=== PATIENT | female | born 1940 | race African-American/Black ===

== ENCOUNTER 2023-04-13 20:24 | Inpatient (IN) | payer OTHER ==
[2023-04-13] MEDS ORDERED: LOSARTAN 50MG/HCTZ 12.5MG 1 TAB PO ONE (22:17)
[2023-04-13] MEDS ORDERED: ACETAMINOPHEN 1000 MG/100 ML BAG IVPB ONE (22:18)
[2023-04-13] MEDS ORDERED: ACETAMINOPHEN INJECTION 100 ML IVPB ONE (22:19)
[2023-04-13] MEDS ORDERED: LOSARTAN POTASSIUM 50 MG TABLET ONE (22:19)
[2023-04-13 22:52] LABS: BASO % 1.8 % (0-2.0); EOS % 0.2 % (0-4.5); HEMATOCRIT 37.1 % (32.4-45.2); HEMOGLOBIN 12.5 GM/dL (10.7-15.3); LYMPH % 29.7 % (8-40); MCH 29.9 pg (25.7-33.7); MCHC 33.7 g/dl (32.0-36.0); MEAN CELL VOLUME 88.8 fl (80-96); MEAN PLT VOLUME 10.3 fl (7.5-11.1); MONO % 5.7 % (3.8-10.2); NEUT % 62.6 % (42.8-82.8); PLATELET COUNT 325 10^3/uL (134-434); RBC 4.18 M/mm3 (3.60-5.2); WHITE BLOOD COUNT 6.2 K/mm3 (4.0-10.0)
[2023-04-13 23:17] LABS: URINE APPEARANCE CLEAR; URINE BILIRUBIN NEGATIVE (NEGATIVE); URINE COLOR YELLOW; URINE GLUCOSE (UA) 3+ (NEGATIVE); URINE KETONE 1+ (NEGATIVE); URINE LEUK ESTERASE NEGATIVE (NEGATIVE); URINE NITRITE NEGATIVE (NEGATIVE); URINE PROTEIN TRACE (NEGATIVE)
[2023-04-13 23:21] LABS: ALBUMIN 3.7 g/dl (3.4-5.0); BLOOD UREA NITROGEN 18.1 mg/dL (7-18); CALCIUM 10.1 mg/dL (8.5-10.1)
[2023-04-13 23:24] LABS: CREATININE 1.1 mg/dL (0.55-1.3)
[2023-04-13 23:26] LABS: BILIRUBIN,TOTAL 0.6 mg/dL (0.2-1); TOT PROT 7.4 g/dl (6.4-8.2)
[2023-04-13] MEDS ORDERED: INSULIN (NOVOLOG MIX 70/30) 100 UNITS/ML MDV SQ SCH (23:41)
[2023-04-13] MEDS ORDERED: INSULIN (NOVOLOG) ASPART 100 UNITS/ML 10ML VIAL SQ ONE (23:43)
[2023-04-14] MEDS ORDERED: INSULIN (NOVOLOG MIX 70/30) 100 UNITS/ML MDV SQ SCH ×2 (07:00→23:37)
[2023-04-14] MEDS ORDERED: ACETAMINOPHEN 1000 MG/100 ML BAG IVPB PRN (07:14)
[2023-04-14] MEDS ORDERED: hydrALAZINE HCL 20 MG/ML VIAL IVPUSH PRN ×2 (07:16→07:17)
[2023-04-14] MEDS ORDERED: hydrALAZINE HCL 20 MG/ML VIAL IVPUSH ONE (07:30)
[2023-04-14] MEDS ORDERED: LIDOCAINE HCL 2% JELLY 6 ML TP ONE (07:30)
[2023-04-14] MEDS ORDERED: HEPARIN NA (PORCINE) 5,000 UNITS/ML 1ML VIAL ONE (07:43)
[2023-04-14] MEDS: HEPARIN NA (PORCINE) 5,000 UNITS/ML 1ML VIAL SQ SCH ×3 (08:03→21:27)
[2023-04-14] MEDS: INSULIN (LEVEMIR) 100 UNITS/ML UNITS SQ SCH (08:03)
[2023-04-14] MEDS: INSULIN SLIDING SCALE (NOVOLOG) 1 VIAL SQ SCH ×4 (08:04→21:27)
[2023-04-14] MEDS: SODIUM CHLORIDE 1,000 ML IV SCH (08:04)
[2023-04-14] MEDS ORDERED: hydrALAZINE HCL 20 MG/ML VIAL ONE (08:08)
[2023-04-14 09:42] LABS: BASO % 0.6 % (0-2.0); EOS % 0.4 % (0-4.5); HEMATOCRIT 38.9 % (32.4-45.2); HEMOGLOBIN 12.6 GM/dL (10.7-15.3); LYMPH % 31.3 % (8-40); MCH 29.3 pg (25.7-33.7); MCHC 32.2 g/dl (32.0-36.0); MEAN CELL VOLUME 90.8 fl (80-96); MEAN PLT VOLUME 9.3 fl (7.5-11.1); MONO % 7.5 % (3.8-10.2); NEUT % 60.2 % (42.8-82.8); PLATELET COUNT 259 10^3/uL (134-434); RBC 4.28 M/mm3 (3.60-5.2); RDW 13.8 % (11.6-15.6); WHITE BLOOD COUNT 5.6 K/mm3 (4.0-10.0)
[2023-04-14 09:49] LABS: INR 1.01 (0.83-1.09); PROTHROMBIN TIME (PATIENT) 11.7 SEC (9.7-13.0)
[2023-04-14] MEDS ORDERED: PANTOPRAZOLE SODIUM 40 MG VIAL IVPUSH SCH (10:00)
[2023-04-14 10:03] LABS: POTASSIUM 4.1 mmol/L (3.5-5.1)
[2023-04-14 10:06] LABS: CALCIUM 9.6 mg/dL (8.5-10.1)
[2023-04-14 10:07] LABS: ALBUMIN 3.4 g/dl (3.4-5.0); BLOOD UREA NITROGEN 17.3 mg/dL (7-18)
[2023-04-14 10:10] LABS: CREATININE 1.2 mg/dL (0.55-1.3); MAGNESIUM 1.6 mg/dL (1.8-2.4); PHOSPHOROUS 3.7 mg/dL (2.5-4.9)
[2023-04-14 10:11] LABS: BILIRUBIN,TOTAL 0.6 mg/dL (0.2-1); TOT PROT 6.9 g/dl (6.4-8.2)
[2023-04-14] MEDS ORDERED: MAGNESIUM SULF 50% (8.12 MEQ/2 ML-1 GM VIAL) IVPB ONE (17:58)
[2023-04-15] MEDS: PANTOPRAZOLE SODIUM 40 MG VIAL IVPUSH SCH ×3 (05:38→21:56)
[2023-04-15] MEDS: HEPARIN NA (PORCINE) 5,000 UNITS/ML 1ML VIAL SQ SCH (06:18)
[2023-04-15] MEDS: INSULIN SLIDING SCALE (NOVOLOG) 1 VIAL SQ SCH ×4 (06:19→21:55)
[2023-04-15] MEDS: INSULIN (LEVEMIR) 100 UNITS/ML UNITS SQ SCH (06:19)
[2023-04-15] MEDS: SODIUM CHLORIDE 1,000 ML IV SCH ×2 (08:15→21:24)
[2023-04-15 08:39] LABS: EOS % 1.4 % (0-4.5); HEMATOCRIT 36.6 % (32.4-45.2); HEMOGLOBIN 12.1 GM/dL (10.7-15.3); LYMPH % 39.5 % (8-40); MCH 29.9 pg (25.7-33.7); MCHC 33.1 g/dl (32.0-36.0); MEAN CELL VOLUME 90.4 fl (80-96); MEAN PLT VOLUME 9.5 fl (7.5-11.1); MONO % 7.8 % (3.8-10.2); NEUT % 50.3 % (42.8-82.8); PLATELET COUNT 257 10^3/uL (134-434); RBC 4.05 M/mm3 (3.60-5.2); RDW 14.2 % (11.6-15.6); WHITE BLOOD COUNT 5.4 K/mm3 (4.0-10.0)
[2023-04-15 09:03] LABS: POTASSIUM 4.6 mmol/L (3.5-5.1)
[2023-04-15 09:12] LABS: ALBUMIN 3.3 g/dl (3.4-5.0); CALCIUM 8.8 mg/dL (8.5-10.1); MAGNESIUM 2.2 mg/dL (1.8-2.4)
[2023-04-15 09:16] LABS: BLOOD UREA NITROGEN 16.5 mg/dL (7-18)
[2023-04-15 09:17] LABS: BILIRUBIN,TOTAL 0.7 mg/dL (0.2-1)
[2023-04-15 09:20] LABS: TOT PROT 6.5 g/dl (6.4-8.2)
[2023-04-15 09:22] LABS: CREATININE 1.2 mg/dL (0.55-1.3)
[2023-04-15] MEDS ORDERED: METOPROLOL TARTRATE 5 MG/5 ML VIAL IVPUSH PRN (10:14)
[2023-04-15] MEDS ORDERED: ACETAMINOPHEN 1000 MG/100 ML BAG IVPB ONE (10:30)
[2023-04-15 15:48] VITALS: RESP 20
[2023-04-16] MEDS: INSULIN SLIDING SCALE (NOVOLOG) 1 VIAL SQ SCH ×3 (06:23→16:29)
[2023-04-16] MEDS: INSULIN (LEVEMIR) 100 UNITS/ML UNITS SQ SCH (06:24)
[2023-04-16] MEDS ORDERED: INSULIN (NOVOLOG) ASPART 100 UNITS/ML 10ML VIAL ONE ×2 (07:56→10:53)
[2023-04-16 08:12] LABS: BASO % 0.7 % (0-2.0); EOS % 2.3 % (0-4.5); HEMOGLOBIN 10.6 GM/dL (10.7-15.3); LYMPH % 30.9 % (8-40); MCH 30.5 pg (25.7-33.7); MEAN CELL VOLUME 92.4 fl (80-96); MEAN PLT VOLUME 10.1 fl (7.5-11.1); NEUT % 54.1 % (42.8-82.8); PLATELET COUNT 229 10^3/uL (134-434); RBC 3.46 M/mm3 (3.60-5.2); RDW 13.8 % (11.6-15.6); WHITE BLOOD COUNT 6.2 K/mm3 (4.0-10.0)
[2023-04-16 08:33] LABS: POTASSIUM 4.5 mmol/L (3.5-5.1)
[2023-04-16 08:35] LABS: ALBUMIN 2.9 g/dl (3.4-5.0); BLOOD UREA NITROGEN 10.6 mg/dL (7-18); CALCIUM 8.1 mg/dL (8.5-10.1); MAGNESIUM 1.8 mg/dL (1.8-2.4)
[2023-04-16 08:38] LABS: PHOSPHOROUS 3.1 mg/dL (2.5-4.9)
[2023-04-16 08:39] LABS: CREATININE 1.1 mg/dL (0.55-1.3)
[2023-04-16 08:40] LABS: BILIRUBIN,TOTAL 0.6 mg/dL (0.2-1); TOT PROT 5.8 g/dl (6.4-8.2)
[2023-04-16] MEDS: PANTOPRAZOLE SODIUM 40 MG VIAL IVPUSH SCH (09:19)
[2023-04-16 11:17] VITALS: BMI 26.2
[2023-04-16 17:27] VITALS: BP 159/86; PULSE 84; TEMP 98.6
== END 2023-04-16 18:08 | disposition home or self-care (01) | DRG 389 ==
LOC: JER 20:24 → JERBED 04-14 03:05 → J4W 04-14 18:31
PROVIDERS: ADMIT Internal Medicine; ATTEND Internal Medicine
DX: K56.609 Unspecified intestinal obstruction, unspecified as to partial versus complete obstruction (principal); K92.0 Hematemesis; I10 Essential (primary) hypertension; E11.65 Type 2 diabetes mellitus with hyperglycemia; E11.9 Type 2 diabetes mellitus without complications
CPT/HCPCS: 36415; 71045-TC-FY; 74018-TC-FY; 74177-TC; 80053; 81003; 82962; 83605; 83690; 83735; 84100; 84484; 85025; 85610; 87077; 87086; 93005; 93010; 99285-25; J1644

== ENCOUNTER 2024-08-26 23:07 | Inpatient (IN) | payer OTHER ==
[2024-08-26] MEDS ORDERED: HALOPERIDOL LACTATE 5 MG/ML ONE (23:18)
[2024-08-26] MEDS ORDERED: LORazepam 2 MG/ML SDV VIAL ONE (23:28)
[2024-08-26] MEDS: HALOPERIDOL LACTATE 5 MG/ML IM ONE (23:38)
[2024-08-27 00:35] LABS: VENOUS BASE EXCESS -0.3 mmol/L (-2-2); VENOUS O2 SATURATION 86.9 % (70-80); VENOUS PCO2 43.4 mmHg (38-52); VENOUS PH 7.378 (7.310-7.410)
[2024-08-27 00:39] LABS: BASO % 0.3 % (0-2.0); EOS % 0.1 % (0-4.5); HEMATOCRIT 38.5 % (32.4-45.2); HEMOGLOBIN 12.6 GM/dL (10.7-15.3); LYMPH % 11.6 % (8-40); MCH 29.8 pg (25.7-33.7); MCHC 32.6 g/dl (32.0-36.0); MEAN CELL VOLUME 91.6 fl (80-96); MEAN PLT VOLUME 10.3 fl (7.5-11.1); MONO % 5.9 % (3.8-10.2); NEUT % 82.1 % (42.8-82.8); PLATELET COUNT 212 10^3/uL (134-434); RBC 4.21 M/mm3 (3.60-5.2); RDW 14.2 % (11.6-15.6); WHITE BLOOD COUNT 9.6 K/mm3 (4.0-10.0)
[2024-08-27] MEDS: SODIUM CHLORIDE 0.9% 500 ML INFUS.BAG IV ONE ×2 (00:40→01:35)
[2024-08-27 00:41] LABS: PH,URINE 5.5 (5.0-8.0); URINE APPEARANCE CLEAR; URINE BILIRUBIN NEGATIVE (NEGATIVE); URINE COLOR YELLOW; URINE GLUCOSE (UA) 3+ (NEGATIVE); URINE KETONE TRACE (NEGATIVE); URINE LEUK ESTERASE 1+ (NEGATIVE); URINE NITRITE NEGATIVE (NEGATIVE); URINE PROTEIN 1+ (NEGATIVE); URINE UROBILINOGEN 0.2 mg/dL (0.2-1.0)
[2024-08-27 00:46] LABS: URINE BARBITURATES NEGATIVE (NEGATIVE); URINE BENZODIAZEPINES NEGATIVE (NEGATIVE)
[2024-08-27 00:47] LABS: METHADONE, UR NEGATIVE (NEGATIVE); OPIATES, URI NEGATIVE (NEGATIVE); PHENCYCLIDINE,URINE NEGATIVE (NEGATIVE)
[2024-08-27 00:55] LABS: CHLORIDE 98 mmol/L (98-107); POTASSIUM 3.8 mmol/L (3.5-5.1); SODIUM 135 mmol/L (136-145)
[2024-08-27 00:57] LABS: ALBUMIN 3.9 g/dl (3.4-5.0); ANION GAP 12 mmol/L (4-13); BLOOD UREA NITROGEN 31.3 mg/dL (7-18); CALCIUM 9.7 mg/dL (8.5-10.1); CO2 25 mmol/L (21-32); MAGNESIUM 1.9 mg/dL (1.8-2.4)
[2024-08-27 01:00] LABS: SGOT/AST 37 U/L (15-37); SGPT/ALT 32 U/L (13-61)
[2024-08-27 01:01] LABS: CREATININE 1.8 mg/dL (0.55-1.3)
[2024-08-27 01:02] LABS: BILIRUBIN,TOTAL 0.4 mg/dL (0.2-1); TOT PROT 7.3 g/dl (6.4-8.2)
[2024-08-27 01:03] LABS: ALK PHOS 242 U/L (45-117)
[2024-08-27 01:12] LABS: COCAINE, UR NEGATIVE (NEGATIVE); GLUCOSE,RANDOM 601 mg/dL (74-106); URINE AMPHETAMINES NEGATIVE (NEGATIVE)
[2024-08-27] MEDS ORDERED: CEFTRIAXONE 1 G/50 ML PREMIX 50 ML IVPB ONE (01:27)
[2024-08-27] MEDS ORDERED: MAGNESIUM SULF 50% (8.12 MEQ/2 ML-1 GM VIAL) ONE (01:29)
[2024-08-27] MEDS: INSULIN REGULAR HUMAN 100 UNITS/ML *VIAL IVPUSH ONE (01:35)
[2024-08-27] MEDS: CEFTRIAXONE 1 GM in DEXTROSE 5%-WATER - 100 ML IVPB ONE (01:35)
[2024-08-27] MEDS: MAGNESIUM SULF 50% (8.12 MEQ/2 ML-1 GM VIAL) IVPB ONE (01:58)
[2024-08-27] MEDS ORDERED: ACETAMINOPHEN 325 MG TABLET (FP) PO PRN ×2 (02:46→17:02)
[2024-08-27 03:12] LABS: POTASSIUM 3.9 mmol/L (3.5-5.1)
[2024-08-27 03:13] LABS: BLOOD UREA NITROGEN 24.6 mg/dL (7-18); CALCIUM 9.1 mg/dL (8.5-10.1)
[2024-08-27 03:15] LABS: EPI CELLS 7.6 /uL (0-25.1); HYALINE CASTS 0.82 /uL (0-3.1); URINE BACTERIA 740.7 /uL (0-1359); URINE RBC 60.9 /uL (0-23.9); URINE WBC 180.5 /uL (0-25.8)
[2024-08-27 03:17] LABS: CREATININE 1.5 mg/dL (0.55-1.3)
[2024-08-27 03:56] LABS: LACTIC ACID 3.9 mmol/L (0.4-2.0)
[2024-08-27] MEDS: INSULIN REGULAR HUMAN 100 UNITS/ML *VIAL IVPUSH PRN (04:57)
[2024-08-27] MEDS: SODIUM CHLORIDE 1,000 ML with POTASSIUM CHLORIDE 40 MEQ IV SCH (04:58)
[2024-08-27] MEDS: hydrALAZINE HCL 20 MG/ML VIAL IVPUSH PRN (04:59)
[2024-08-27] MEDS: DEXMEDETOMIDINE PREMIX 400 MCG/100 ML BAG IVPB SCH (05:31)
[2024-08-27] MEDS: INSULIN ASPART SLIDING SCALE (NOVOLOG) 1 VIAL SQ SCH ×2 (06:51→18:50)
[2024-08-27 08:20] LABS: HEMATOCRIT 39.2 % (32.4-45.2); HEMOGLOBIN 12.4 GM/dL (10.7-15.3); MCH 29.7 pg (25.7-33.7); MCHC 31.7 g/dl (32.0-36.0); MEAN CELL VOLUME 93.6 fl (80-96); MEAN PLT VOLUME 10.5 fl (7.5-11.1); PLATELET COUNT 205 10^3/uL (134-434); RBC 4.19 M/mm3 (3.60-5.2); RDW 13.9 % (11.6-15.6); WHITE BLOOD COUNT 12.1 K/mm3 (4.0-10.0)
[2024-08-27 08:23] LABS: POTASSIUM 3.7 mmol/L (3.5-5.1)
[2024-08-27 08:27] LABS: CALCIUM 9.3 mg/dL (8.5-10.1)
[2024-08-27] MEDS: INSULIN (LEVEMIR) 100 UNITS/ML UNITS SQ SCH (08:27)
[2024-08-27 08:28] LABS: BLOOD UREA NITROGEN 24.7 mg/dL (7-18)
[2024-08-27 08:31] LABS: CREATININE 1.5 mg/dL (0.55-1.3); PHOSPHOROUS 2.2 mg/dL (2.5-4.9)
[2024-08-27 08:58] LABS: LACTIC ACID 5.1 mmol/L (0.4-2.0)
[2024-08-27] MEDS: SODIUM CHLORIDE 1,000 ML IV STA ×2 (09:38→14:21)
[2024-08-27] MEDS: HEPARIN NA (PORCINE) 5,000 UNITS/ML 1ML VIAL SQ SCH ×2 (09:38→21:54)
[2024-08-27] MEDS: amLODIPine BESYLATE 10 MG TABLET (FP) PO SCH (09:38)
[2024-08-27] MEDS: SERTRALINE HCL 25 MG TABLET (FP) PO SCH (09:38)
[2024-08-27] MEDS: PANTOPRAZOLE 40 MG TABLET PO SCH (09:38)
[2024-08-27 11:43] LABS: LACTIC ACID 2.7 mmol/L (0.4-2.0)
[2024-08-27] MEDS: LOSARTAN 50MG/HCTZ 12.5MG 1 TAB PO SCH (12:14)
[2024-08-27] MEDS: NAPH,MB-DB/K PH,MBDB POWDER PACKET PO SCH (14:21)
[2024-08-27] MEDS ORDERED: DEXTROSE 50%-WATER - 25 GM/50 ML VIAL IVPUSH PRN (14:41)
[2024-08-27] MEDS ORDERED: hydrALAZINE HCL 20 MG/ML VIAL IVPUSH PRN (17:02)
[2024-08-27] MEDS: LABETALOL HCL 100 MG TABLET (FP) PO ONE (17:12)
[2024-08-27] MEDS: POTASSIUM PHOSPHATE 30 MM in SODIUM CHLORIDE 500 ML IVPB ONE (18:08)
[2024-08-27] MEDS: MUPIROCIN 2% TOPICAL OINTMENT FOR DECOLONIZATION NS SCH (18:23)
[2024-08-27] MEDS: hydrOXYzine PAMOATE 25 MG CAPSULE (FP) PO ONE (20:39)
[2024-08-27] MEDS: MELATONIN 5 MG TABLETS PO ONE (20:40)
[2024-08-27] MEDS: CEFTRIAXONE 1 G/50 ML PREMIX 50 ML IVPB SCH (21:54)
[2024-08-27] MEDS: ROSUVASTATIN CA 10 MG TABLET PO SCH (21:54)
[2024-08-27] MEDS ORDERED: ROSUVASTATIN CA 10 MG TABLET PO SCH (22:00)
[2024-08-27] MEDS ORDERED: CEFTRIAXONE 1 G/50 ML PREMIX 50 ML IVPB SCH (22:00)
[2024-08-27] MEDS ORDERED: MUPIROCIN 2% TOPICAL OINTMENT FOR DECOLONIZATION NS SCH (22:00)
[2024-08-27] MEDS ORDERED: CHLORHEXIDINE GLUCONATE 4% CLEANSER FOR DECOLONIZATION TP SCH ×2 (22:00)
[2024-08-27] MEDS: POTASSIUM CHLORIDE 40 MEQ in SODIUM CHLORIDE 1,000 ML IV SCH (22:32)
[2024-08-28] MEDS: LABETALOL HCL 100 MG TABLET (FP) PO ONE (00:42)
[2024-08-28] MEDS: SODIUM CHLORIDE 1,000 ML with POTASSIUM CHLORIDE 40 MEQ IV SCH (07:37)
[2024-08-28 08:01] LABS: HEMATOCRIT 35.9 % (32.4-45.2); HEMOGLOBIN 11.3 GM/dL (10.7-15.3); MCH 29.4 pg (25.7-33.7); MCHC 31.6 g/dl (32.0-36.0); MEAN CELL VOLUME 93.1 fl (80-96); MEAN PLT VOLUME 9.6 fl (7.5-11.1); PLATELET COUNT 194 10^3/uL (134-434); RBC 3.85 M/mm3 (3.60-5.2); RDW 14.2 % (11.6-15.6); WHITE BLOOD COUNT 7.7 K/mm3 (4.0-10.0)
[2024-08-28 08:17] LABS: POTASSIUM 4.4 mmol/L (3.5-5.1)
[2024-08-28 08:20] LABS: BLOOD UREA NITROGEN 14.6 mg/dL (7-18)
[2024-08-28 08:24] LABS: CREATININE 1.3 mg/dL (0.55-1.3); MAGNESIUM 1.8 mg/dL (1.8-2.4); PHOSPHOROUS 3.9 mg/dL (2.5-4.9)
[2024-08-28] MEDS: SERTRALINE HCL 25 MG TABLET (FP) PO SCH (09:46)
[2024-08-28] MEDS: LOSARTAN 50MG/HCTZ 12.5MG 1 TAB PO SCH (09:46)
[2024-08-28] MEDS: amLODIPine BESYLATE 10 MG TABLET (FP) PO SCH (09:46)
[2024-08-28 14:55] LABS: EPI CELLS 6 /uL (0-25.1); HYALINE CASTS 1 /uL (0-3.1); PH,URINE 5.5 (5.0-8.0); URINE APPEARANCE CLEAR; URINE BACTERIA 11 /uL (0-1359); URINE BILIRUBIN NEGATIVE (NEGATIVE); URINE COLOR YELLOW; URINE GLUCOSE (UA) 3+ (NEGATIVE); URINE KETONE TRACE (NEGATIVE); URINE LEUK ESTERASE NEGATIVE (NEGATIVE); URINE NITRITE NEGATIVE (NEGATIVE); URINE PROTEIN 1+ (NEGATIVE); URINE RBC 127 /uL (0-23.9); URINE UROBILINOGEN 0.2 mg/dL (0.2-1.0); URINE WBC 21 /uL (0-25.8)
[2024-08-28] MEDS: INSULIN ASPART SLIDING SCALE (NOVOLOG) 1 VIAL SQ SCH (16:22)
[2024-08-28] MEDS: INSULIN (LEVEMIR) 100 UNITS/ML UNITS SQ SCH (21:54)
[2024-08-29 08:11] LABS: BASO % 0.9 % (0-2.0); EOS % 1.8 % (0-4.5); HEMATOCRIT 36.3 % (32.4-45.2); HEMOGLOBIN 11.9 GM/dL (10.7-15.3); LYMPH % 40.6 % (8-40); MCHC 32.8 g/dl (32.0-36.0); MEAN CELL VOLUME 91.5 fl (80-96); MONO % 9.6 % (3.8-10.2); NEUT % 47.1 % (42.8-82.8); PLATELET COUNT 201 10^3/uL (134-434); RBC 3.97 M/mm3 (3.60-5.2); RDW 14.2 % (11.6-15.6); WHITE BLOOD COUNT 5.5 K/mm3 (4.0-10.0)
[2024-08-29 08:15] LABS: CALCIUM 8.9 mg/dL (8.5-10.1)
[2024-08-29 08:16] LABS: BLOOD UREA NITROGEN 18.2 mg/dL (7-18)
[2024-08-29 08:18] LABS: POTASSIUM 4.3 mmol/L (3.5-5.1)
[2024-08-29 08:19] LABS: CREATININE 1.3 mg/dL (0.55-1.3)
[2024-08-29 08:20] LABS: BILIRUBIN,TOTAL 0.5 mg/dL (0.2-1)
[2024-08-30 09:44] LABS: BASO % 0.5 % (0-2.0); EOS % 2.6 % (0-4.5); HEMATOCRIT 37.5 % (32.4-45.2); HEMOGLOBIN 12.3 GM/dL (10.7-15.3); LYMPH % 39.6 % (8-40); MCH 30.1 pg (25.7-33.7); MCHC 32.9 g/dl (32.0-36.0); MEAN CELL VOLUME 91.6 fl (80-96); MEAN PLT VOLUME 9.2 fl (7.5-11.1); MONO % 10.5 % (3.8-10.2); NEUT % 46.8 % (42.8-82.8); PLATELET COUNT 216 10^3/uL (134-434); RBC 4.09 M/mm3 (3.60-5.2); RDW 14.3 % (11.6-15.6); WHITE BLOOD COUNT 5.1 K/mm3 (4.0-10.0)
[2024-08-30 09:52] LABS: POTASSIUM 4.2 mmol/L (3.5-5.1)
[2024-08-30 10:05] LABS: ALBUMIN 3.1 g/dl (3.4-5.0)
[2024-08-30 10:06] LABS: BLOOD UREA NITROGEN 19.6 mg/dL (7-18); MAGNESIUM 1.9 mg/dL (1.8-2.4)
[2024-08-30 10:08] LABS: CREATININE 1.6 mg/dL (0.55-1.3)
[2024-08-30 10:09] LABS: BILIRUBIN,TOTAL 0.7 mg/dL (0.2-1)
[2024-08-30 10:10] LABS: TOT PROT 6.5 g/dl (6.4-8.2)
[2024-08-31 08:46] LABS: BASO % 0.6 % (0-2.0); EOS % 2.7 % (0-4.5); HEMATOCRIT 37.6 % (32.4-45.2); HEMOGLOBIN 12.4 GM/dL (10.7-15.3); LYMPH % 47.3 % (8-40); MCH 30.4 pg (25.7-33.7); MCHC 33.1 g/dl (32.0-36.0); MEAN CELL VOLUME 91.8 fl (80-96); MEAN PLT VOLUME 9.5 fl (7.5-11.1); MONO % 10.4 % (3.8-10.2); PLATELET COUNT 212 10^3/uL (134-434); RDW 14.1 % (11.6-15.6); WHITE BLOOD COUNT 4.2 K/mm3 (4.0-10.0)
[2024-08-31 09:08] LABS: POTASSIUM 4.3 mmol/L (3.5-5.1)
[2024-08-31 09:16] LABS: ALBUMIN 3.1 g/dl (3.4-5.0); BLOOD UREA NITROGEN 21.7 mg/dL (7-18); CALCIUM 9.2 mg/dL (8.5-10.1); MAGNESIUM 1.9 mg/dL (1.8-2.4)
[2024-08-31 09:20] LABS: CREATININE 1.5 mg/dL (0.55-1.3)
[2024-08-31 09:21] LABS: BILIRUBIN,TOTAL 0.8 mg/dL (0.2-1); TOT PROT 6.4 g/dl (6.4-8.2)
[2024-08-31 14:03] VITALS: BP 105/51; PULSE 88; RESP 16; TEMP 98.2
[2024-08-31 14:18] VITALS: BMI 25.2
[2024-09-01] MEDS ORDERED: AMINO ACIDS/PROTEIN HYDROLYS 30 ML LIQUID.PKT PO SCH (08:00)
[2024-09-01] MEDS ORDERED: ASCORBIC ACID 500 MG TABLET (FP) PO SCH (10:00)
[2024-09-01] MEDS ORDERED: MULTIVITAMINS (DAILY MVI) TABLET (FP) PO SCH (10:00)
== END 2024-08-31 05:45 | disposition home health service (06) | DRG 637 ==
LOC: JER 23:07 → JERBED 08-27 01:17 → JICU 08-27 04:15 → J7W 08-27 15:53
PROVIDERS: ADMIT Internal Medicine Pulmonary Disease
DX: E11.00 Type 2 diabetes mellitus with hyperosmolarity without nonketotic hyperglycemic-hyperosmolar coma (NKHHC) (principal); G93.41 Metabolic encephalopathy; F03.918 Unspecified dementia, unspecified severity, with other behavioral disturbance; N39.0 Urinary tract infection, site not specified; I10 Essential (primary) hypertension
CPT/HCPCS: 0241U-QW; 36415; 70450-TC; 71045-TC-FY; 80048; 80053; 80061; 80307; 81003; 82803; 82962; 83036; 83605; 83735; 83930; 84100; 84443; 85025; 85027; 86850; 86900; 86901; 87040; 87086; 87186; 87481; 93005; 93010; 93306-TC; 97116-GP; 97162-GP; 99285-25; J1644